=== PATIENT | male | born 1975 | race Caucasian/White ===

== ENCOUNTER 2018-06-28 11:01 | Emergency (ER) | payer OTHER ==
--- NOTE | 2018-06-28 11:18 | CPEKG ---
Test Reason : OPEN Blood Pressure : / mmHG Vent. Rate : 097 BPM Atrial Rate : 097 BPM P-R Int : 159 ms QRS Dur : 106 ms QT Int : 352 ms P-R-T Axes : 087 026 057 degrees QTc Int : 447 ms Sinus rhythm Probable left atrial enlargement Left ventricular hypertrophy Confirmed by Corby Ghosh ([id number]) on 06/28/2018 11:17:26 AM Referred By: Confirmed By:Corby Ghosh
--- NOTE | 2018-06-28 11:29 | EDPHY ---
H & P Stated Complaint: 1020 had ~ 5 minutes of change in hr. residual nausea .denies pain Time Seen by Provider: 06/28/18 11:05 HPI/ROS: CHIEF COMPLAINT: Palpitations HISTORY OF PRESENT ILLNESS: Patient is a 42-year-old man who has a history of intermittent atrial tachycardia with a right bundle branch morphology. This was 1st noticed in 2010 during a angiogram and resolved immediately with metoprolol. He had clean coronary arteries but developed this arrhythmia briefly. He was started on beta-blockers at that time and is still on Bystolic and digoxin. He states that he occasionally has episodes of this arrhythmia and feels lightheaded particularly if he does not get enough sleep or when he gets dehydrated or is exercising too hard. Today it happened and persisted for about 5 min. He thinks it is because he has taken 2 doses of prednisone in preparation for CT scan today. He states that prednisone often gives him the symptoms. He is being worked up by his primary doctor for having 2 months of periumbilical abdominal pain. He is scheduled to get a CT scan with contrast today. Last time he had IV contrast he had mild dizziness and a slight rash on his chest. No shortness of breath or GI symptoms. His palpitations today last for about 5 min and resolved prior to coming to the ER. He does have a tracing on his phone that shows when he converted. He states that when he converts he feels immediately better. He states that in the past they have tried to do an ablation but cannot isolate the abnormality. He did also have surgery at age 8 for PDA. Severity: Resolved Modifying factors: None REVIEW OF SYSTEMS: Constitutional: denies: chills, fever, recent illness, recent injury EENTM: denies: blurred vision, double vision, nose congestion Respiratory: denies: cough, shortness of breath Cardiac: See HPI denies: chest pain, irregular heart rate, lightheadedness, palpitations Gastrointestinal/Abdominal: denies: abdominal pain, diarrhea, nausea, vomiting, blood streaked stools Genitourinary: denies: dysuria, frequency, hematuria, pain Musculoskeletal: denies: joint pain, muscle pain Skin: denies: lesions, rash, jaundice, bruising Neurological: denies: headache, numbness, paresthesia, tingling, dizziness, weakness Hematologic/Lymphatic: denies: blood clots, easy bleeding, easy bruising Immunologic/allergic: denies: HIV/AIDS, transplant 10 systems reviewed and negative except as noted EXAM: GENERAL: Well-appearing, well-nourished and in no acute distress. HEAD: Atraumatic, normocephalic. EYES: Pupils equal round and reactive to light, extraocular movements intact, sclera anicteric, conjunctiva are normal. ENT: TMs normal, nares patent, oropharynx clear without exudates. Moist mucous membranes. NECK: Normal range of motion, supple without lymphadenopathy or JVD. LUNGS: Breath sounds clear to auscultation bilaterally and equal. No wheezes rales or rhonchi. HEART: Regular rate and rhythm without murmurs, rubs or gallops. ABDOMEN: Soft, nontender, normoactive bowel sounds. No guarding, no rebound. No masses appreciated. BACK: No CVA tenderness, no spinal tenderness, step-offs or deformities EXTREMITIES: Normal range of motion, no pitting or edema. No clubbing or cyanosis. NEUROLOGICAL: Cranial nerves II through XII grossly intact. Normal speech, normal gait. 5/5 strength, normal movement in all extremities, normal sensation , normal reflexes PSYCH: Normal mood, normal affect. SKIN: Warm, dry, normal turgor, no visible rashes or lesions. Source: Patient Exam Limitations: No limitations - Personal History Current Tetanus/Diphtheria Vaccine: Unsure Current Tetanus Diphtheria and Acellular Pertussis (TDAP): Unsure - Medical/Surgical History Hx Asthma: Yes Hx Chronic Respiratory Disease: No Hx Diabetes: No Hx Cardiac Disease: Yes Hx Renal Disease: No Hx Cirrhosis: No Hx Alcoholism: No Hx HIV/AIDS: No Hx Splenectomy or Spleen Trauma: No Other PMH: htn/ hernia/Hr valve surg PDA( at 7months ). Intermittent Atrial tachycardia with LBBB - Family History Significant Family History: No pertinent family hx - Social History Smoking Status: Never smoked Alcohol Use: Sober Drug Use: None Constitutional: Initial Vital Signs Temperature (C) 36.9 C 06/28/18 11:07 Heart Rate 111 H 06/28/18 11:07 Respiratory Rate 20 06/28/18 11:07 Blood Pressure 138/85 H 06/28/18 11:07 O2 Sat (%) 98 06/28/18 11:07 O2 Delivery Mode Room Air Allergies/Adverse Reactions: iodixanol [From Visipaque] Allergy (Verified 06/28/18 11:05) IV CONTRAST Allergy (Unknown, Uncoded 06/28/18 11:05) Home Medications: Medication Instructions Recorded Aspirin 81mg 01/12/11 Digoxin 01/12/11 Xopenex 0.31MG Neb (RX) 06/22/14 Bystolic 06/28/18 Dulera 100 Mcg/5 Mcg Inhaler 06/28/18 Medical Decision Making ED Course/Re-evaluation: The patient is currently asymptomatic. His rhythm converted about 30 min ago. His EKG here is similar to previous. According to the patient this seems to happen fairly commonly. There has not been any interventional options in the past with previous episodes. It has been thoroughly explored by Cardiology. The patient is on appropriate medications. He and I agree that his episode today is likely triggered by his prednisone use prior to the scheduled CT scan. He is now concerned about getting the CT scan. We discussed options. I told him I would prefer to leave that decision between him and his primary care doctor who is ordering the test but that it is possible to do the CT scan without contrast. Also his previous reactions seems relatively minor and he has received premedication. He has also been planning to take some Benadryl. We agreed not to perform any further lab work but to keep him on the monitor for the next 20 min or so while he speaks with his primary to discuss options for the CT scan. 11:55 a.m. the patient has not had any further arrhythmias or palpitations. I will discharge him at this time. He is contacting his primary to discussed CT imaging. 12:00 p.m. I spoke with Dr. Carr and with the radiology department. She feels that the patient is unlikely to have appendicitis and that he can have a noncontrast C T. He did drink oral contrast last night but states that it made him feel nauseous does not want to drink again. The patient seems to prefer this and will probably have his CT done without contrast. I did advise him that his previous reactions seems relatively minor and that it would likely be prevented with the medications he has taken prophylactically will discharge him from the emergency department this time and he is going over to the outpatient radiology department. Differential Diagnosis: Partial list of the Differential diagnosis considered include but were not limited to; sinus arrhythmia, SVT, atrial fibrillation, anxiety and although unlikely based on the history and physical exam, I also considered V-tach, acute coronary disease. I discussed these differential diagnoses and the plan with the patient as well as the usual and expected course. The patient understands that the diagnosis is provisional and that in medicine we are not always correct and that further workup is often warranted. Usual and customary warnings were given. All of the patient's questions were answered. The patient was instructed to return to the emergency department should the symptoms at all worsen or return, otherwise to followup with the physician as we discussed. Departure - Departure Disposition: Home, Routine, Self-Care Clinical Impression: Sinus tachycardia with aberrancy Condition: Fair Instructions: Atrial Tachycardia (ED) Referrals: Sharon Alonso MD [Primary Care Provider] - As per Instructions Prosper Molina MD [Medical Doctor] - As per Instructions
[2018-06-28 12:05] VITALS: BP 129/76
== END 2018-06-28 12:27 | disposition home or self-care (01) ==
LOC: CED 11:01
DX: I47.1 Supraventricular tachycardia (principal); I10 Essential (primary) hypertension

== ENCOUNTER → 2018-06-28 | Outpatient (CLI) | payer OTHER ==
[~2018-06-28] MED LIST: IOPAMIDOL (ISOVUE-300) 100 ML BTL ONE
== END ==
LOC: CIMAGING 12:27
PROVIDERS: ATTEND Internal Medicine
DX: R10.31 Right lower quadrant pain (principal); R10.33 Periumbilical pain
CPT/HCPCS: 74177-PO; Q9967